=== PATIENT | male | born 1990 | race Caucasian/White ===

== ENCOUNTER 2020-12-08 11:21 | Emergency (ER) | payer OTHER | END 2020-12-08 13:30 | disposition home or self-care (01) | LOC: FER 11:21 | DX: H11.32 Conjunctival hemorrhage, left eye (principal) | CPT/HCPCS: 99282 ==

== ENCOUNTER 2021-08-30 21:07 | Emergency (ER) | payer OTHER ==
[~2021-08-30] VITALS: Ht 172.7 cm; Wt 77.1 kg
[2021-08-31 00:38] LABS: BASOPHIL 0.5 % (0-2); EOSINOPHIL 3.9 % (0-5); HCT 45.7 % (42.0-52.0); HGB 15.6 g/dl (13.2-18.0); LYMPHOCYTE 21.9 % (15-48); MCH 32.8 pg (25.0-31.0); MCHC 34.1 g/dL (32.0-36.0); MONOCYTE 10.2 % (0-12); MPV 10.1 fL (6.0-9.5); NEUTROPHIL 63.1 % (41-80); NRBC 0; PLT 210 K/uL (150-400); RBC 4.76 M/uL (4.70-6.00); WBC 10.9 K/uL (4.0-10.5)
[2021-08-31 00:57] LABS: ALBUMIN 3.5 g/dL (3.4-5.0); BILIRUBIN - TOTAL 0.4 mg/dL (0.2-1.0); CREATININE 0.86 mg/dL (0.67-1.17); GLOBULIN (CALCULATION) 3.6 g/dL; TOTAL PROTEIN 7.1 g/dL (6.4-8.2)
[2021-08-31 01:14] LABS: CORONAVIRUS 2019 SARS-COV-2 NEGATIVE (NEGATIVE); INFLUENZA A NAA NEGATIVE (NEGATIVE)
[2021-08-31 01:37] LABS: BILIRUBIN NEGATIVE (NEGATIVE); BLOOD NEGATIVE Ery/uL (NEGATIVE); CLARITY CLEAR (CLEAR); COLOR YELLOW (YELLOW); GLUCOSE (U) NORMAL (NORMAL); LEUKOCYTES NEGATIVE Leu/uL (NEGATIVE); NITRITE NEGATIVE (NEGATIVE); PROTEIN NEGATIVE (NEGATIVE); UROBILINOGEN 0.2 mg/dL (0.2-1.0)
[2021-09-01 06:12] LABS: HIV AB/P24 AG SCREEN Non Reactive (Non Reactive)
== END 2021-08-31 02:15 | disposition home or self-care (01) ==
LOC: FER 21:07
PROVIDERS: Emergency Medicine; Physician Assistant
DX: R07.89 Other chest pain (principal); F17.200 Nicotine dependence, unspecified, uncomplicated; Z20.822 Contact with and (suspected) exposure to COVID-19
CPT/HCPCS: 36415; 71045; 80053; 81003; 84484; 85025; 87389; 93005; J1885; U0002